=== PATIENT | female | born 1940 | race Caucasian/White ===

== ENCOUNTER → 2018-07-21 10:06 | Outpatient (CLI) | payer MEDICARE, BC, SELFPAY ==
[2018-07-21 10:24] LABS: Basophils # 0.1 K/mm3 (0-0.2); Basophils % 0.8 % (0.1-2.0); Eosinophils # 0.2 K/mm3 (0.0-0.4); Eosinophils % 3.7 % (0.1-12.0); Hematocrit 43.7 % (37.0-47.0); Hemoglobin 15.2 g/dL (12.2-16.2); Lymphocytes # 1.9 K/mm3 (0.7-4.5); Lymphocytes % 29.3 % (10-50); Mean Corpuscular HGB Conc 34.7 g/dL (31.8-35.4); Mean Corpuscular Hemoglobin 28.7 pg (27.0-31.2); Mean Corpuscular Volume 82.7 fl (81-99); Mean Platelet Volume 8.6 fl (7.4-10.4); Monocytes # 0.4 K/mm3 (0.1-1.0); Neutrophils # 3.9 K/mm3 (1.8-7.8); Neutrophils % 60.3 % (37.0-80.0); Platelet Count 234 K/mm3 (142-424); Red Blood Count 5.29 M/mm3 (4.20-5.40); Red Cell Distribution Width 14.8 % (11.5-17.5); White Blood Count 6.5 K/mm3 (4.8-10.8)
[2018-07-21 11:31] LABS: Alanine Aminotransferase 31 U/L (12-78); Albumin Level 3.9 gm/dL (3.4-5.0); Alkaline Phosphatase 96 U/L (46-116); Aspartate Amino Transferase 17 U/L (15-37); Bilirubin,Total 0.4 mg/dL (0.2-1.0); Blood Urea Nitrogen 11 mg/dL (7-18); Calcium 9.1 mg/dL (8.5-10.1); Carbon Dioxide 27 mmol/L (21.0-32.0); Chloride 104 mmol/L (98-107); Chol/HDL Ratio 2.8 (1-3.5); Cholesterol 173 mg/dL (140-200); Creatinine,Serum 0.75 mg/dL (0.55-1.02); Estimated Glomerular Filt Rate 75 ml/min (>60); GFR (African American) 91 ML/MIN (>60); Globulin 3.8 gm/dl (1.3-3.2); Glucose 108 mg/dL (74-106); HDL Cholesterol 62 mg/dL (29-89); LDL Cholesterol 101 mg/dL (0-130); Sodium 140 mmol/L (136-145); Total Protein,Serum 7.7 gm/dL (6.4-8.2); Triglycerides 50 mg/dL (30-200); VLDL Cholesterol 10 mg/dL (0-40)
== END ==
PROVIDERS: Visit Provider Internal Medicine
DX: I10 Essential (primary) hypertension (principal); E78.5 Hyperlipidemia, unspecified; J45.909 Unspecified asthma, uncomplicated; I73.9 Peripheral vascular disease, unspecified; M15.0 Primary generalized (osteo)arthritis
CPT/HCPCS: 36415; 80053; 80061; 85025

== ENCOUNTER 2020-02-05 10:32 | Emergency (ER) | payer MEDICARE, BC, SELFPAY ==
[2020-02-05 10:55] VITALS: BP 151/79; PULSE 89; RESP 18; TEMP 36.9; O2SAT 94; BMI 24.7
--- NOTE | 2020-02-05 10:58 | HMH.EDUTC ---
[facility] [place] Disposition Clinical Impression: Exposure to COVID-19 virus, Viral syndrome Disposition: Home, Self-Care Condition on Discharge: Good Instructions: DI for Viral Syndrome, Preventing the Spread of Coronavirus Discharge Instructions Additional Instructions: Drink plenty of fluids. Take tylenol for pain or fever. Take the medications as directed. Follow up with your regular doctor. GO TO THE ER FOR ANY WORSENING SYMPTOMS Referrals: Clifton Nolasco [Primary Care Provider] - Time of Disposition: 10:59 Medical Decision Making - Medical Records Medical records reviewed: No: I reviewed the patient's medical records. - Daniel Inquiry Pt receiving controlled substance: No Vital Signs: 02/05/20 10:55 02/05/20 11:17 Temperature 98.5 F 98.5 F Temperature Source Oral Oral Pulse Rate 89 Pulse Rate [Radial] 89 Respiratory Rate 18 18 Blood Pressure 151/79 H Blood Pressure [Right Arm] 151/79 H Blood Pressure Mean [Right Arm] 103 Blood Pressure Source Automatic Cuff Blood Pressure Source [Right Arm] Automatic Cuff Blood Pressure Position Sitting Blood Pressure Position [Right Arm] Sitting 02 Sat by Pulse Oximetry 94 L Oxygen Delivery Method Room Air Room Air Orders (Tests/Meds): ORDERS Category Date Time Status Covid-19 Nasal PCR Sendout [facility] 02/05/20 10:49 Received [facility] [place] HPI - General Stated complaint: fever,wants covid test Time Seen by Provider: 02/05/20 10:55 Mode of Arrival: Ambulatory Source of Information: Patient Limitations: No Limitations Description of Symptoms (Recalled from Triage Doc. by RN): states she has been having a fever in the morning. wanting to be tested for covid HEENT Symptoms (Recalled from RN notes): No Resp Symptoms (Recalled from RN notes): No Skin Symptoms (Recalled from RN notes): No MS Symptoms (Recalled from RN notes): No Functional Status (Recalled from RN notes): wnl - History of Present Illness Provider Complaint: She states that for the past 4 days she has had some chilling and low grade fever in the mornings. She denies other symptoms, but she is worried about possibly having covid. - Related Data Allergies Allergy/AdvReac Type Severity Reaction Status Date / Time INGREDIENT: NO KNOWN - NO Allergy Unknown Uncoded 03/12/17 15:10 KNOWN DRUG ALLERGY - Worker's Comp Is this a Worker's Comp case?: No [facility] History - Hepatitis A Screen Drug use history?: No High risk sexual behaviors?: No History of sexually transmitted infection?: No Currently employed?: No Childcare worker?: No Do you have indoor plumbing?: Yes Do you have electricity?: Yes Attestation statement:: This patient has been screened for Hepatitis A risk factors. I have reviewed the patient's past medical history: Yes - Social History Alcohol Intake: never Occupational Status: other ROS Obtained: Yes All systems reviewed & no additional complaints - Constitutional Constitutional: Reports system reviewed and no additional complaints, except as docu - Eyes Eyes: Reports system reviewed and no additional complaints, except as docu - ENT Ears, Nose, Mouth, and Throat: Reports system reviewed and no additional complaints, except as docu - Cardiovascular Cardiovascular: Reports system reviewed and no additional complaints, except as docu - Respiratory Respiratory: Yes system reviewed and no additional complaints, except as docu - Gastrointestinal Gastrointestingal: Reports: system reviewed and no additional complaints, except as docu Physical Exam - General General appearance: alert, in no apparent distress - Head Head exam: atraumatic, normocephalic, normal inspection - Eye Eye exam: Present: normal appearance, PERRL, EOMI - ENT ENT exam: Present: normal exam, normal oropharynx, mucous membranes moist, TM's normal bilaterally, normal external ear exam - Neck Neck exam: Present: normal inspection, full ROM, trachea midline. Ab
[2020-02-05 11:17] VITALS: BP 151/79; PULSE 89; RESP 18; TEMP 36.9; O2SAT 94
[2020-02-06 14:10] LABS: Covid-19 Nasal PCR Sendout Lex Positive
== END 2020-02-05 11:18 | disposition home or self-care (01) ==
PROVIDERS: Emergency Provider Nurse Practitioner Family; PCP Internal Medicine
DX: U07.1 COVID-19 (principal)
CPT/HCPCS: 99201; U0004

== ENCOUNTER → 2020-10-17 10:55 | Outpatient (CLI) | payer MEDICARE, BC, SELFPAY ==
[2020-10-17 11:45] LABS: Basophils # 0.1 K/mm3 (0-0.2); Basophils % 1.1 % (0.1-2.0); Eosinophils # 0.2 K/mm3 (0.0-0.4); Eosinophils % 3.3 % (0.1-12.0); Hematocrit 40.4 % (37.0-47.0); Hemoglobin 12.7 g/dL (12.2-16.2); Lymphocytes # 1.8 K/mm3 (0.7-4.5); Lymphocytes % 29.3 % (10-50); Mean Corpuscular HGB Conc 31.6 g/dL (31.8-35.4); Mean Corpuscular Hemoglobin 25.2 pg (27.0-31.2); Mean Corpuscular Volume 79.8 fl (81-99); Monocytes # 0.4 K/mm3 (0.1-1.0); Monocytes % 7.3 % (1.7-9.3); Neutrophils # 3.6 K/mm3 (1.8-7.8); Neutrophils % 59.1 % (37.0-80.0); Platelet Count 244 K/mm3 (142-424); Red Blood Count 5.06 M/mm3 (4.20-5.40); Red Cell Distribution Width 18.6 % (11.5-17.5); White Blood Count 6.1 K/mm3 (4.8-10.8)
[2020-10-17 13:01] LABS: Iron 108 ug/dL (37-170)
[2020-10-17 13:10] LABS: Total Iron Binding Capacity 350 ug/dL (265-497)
[2020-10-17 13:37] LABS: Ferritin 21.4 ng/ml (11.1-264)
== END ==
PROVIDERS: Visit Provider Nurse Practitioner Family
DX: D50.9 Iron deficiency anemia, unspecified (principal)
CPT/HCPCS: 36415; 82728; 83540; 83550; 85025

== ENCOUNTER → 2020-10-24 10:35 | Outpatient (CLI) | payer MEDICARE, BC, SELFPAY ==
[2020-10-27 11:13] LABS: Occult Blood,Stool Negative (Negative)
== END ==
PROVIDERS: Visit Provider Nurse Practitioner Family
DX: D50.9 Iron deficiency anemia, unspecified (principal)
CPT/HCPCS: 82272; G0328

== ENCOUNTER → 2020-10-25 10:41 | Outpatient (CLI) | payer MEDICARE, BC, SELFPAY ==
[2020-10-27 11:13] LABS: Occult Blood,Stool Positive (Negative)
== END ==
PROVIDERS: Visit Provider Nurse Practitioner Family
DX: D50.9 Iron deficiency anemia, unspecified (principal)
CPT/HCPCS: 82272; G0328

== ENCOUNTER → 2020-10-26 10:44 | Outpatient (CLI) | payer MEDICARE, BC, SELFPAY ==
[2020-10-27 11:13] LABS: Occult Blood,Stool Positive (Negative)
== END ==
PROVIDERS: Visit Provider Nurse Practitioner Family
DX: D50.9 Iron deficiency anemia, unspecified (principal)
CPT/HCPCS: 82272; G0328

== ENCOUNTER → 2021-01-03 09:35 | Outpatient (CLI) | payer MEDICARE, BC, SELFPAY | PROVIDERS: Visit Provider Surgery | DX: Z01.812 Encounter for preprocedural laboratory examination (principal); Z11.52 Encounter for screening for COVID-19; Z13.810 Encounter for screening for upper gastrointestinal disorder; Z12.11 Encounter for screening for malignant neoplasm of colon | CPT/HCPCS: C9803; U0003; U0005 ==

== ENCOUNTER 2021-01-05 09:56 | Day surgery (SDC) | payer MEDICARE, BC, SELFPAY ==
[2021-01-05 10:40] VITALS: BP 203/79; PULSE 70; RESP 20; TEMP 37; O2SAT 97; BMI 23.5
[2021-01-05 11:16] VITALS: O2SAT 97
--- NOTE | 2021-01-05 12:15 | HMH.SCOPE ---
- Procedure: Date: 01/05/21 Patient Date of :: 1940 Procedure Performed:: Esophagogastroduodenoscopy with biopsy Colonoscopy with polypectomy Indications:: Iron deficiency Heme positive stools Performing Provider:: Kentrell Painter MD Referring Provider:: . Sedation:: Monitored anesthesia care Procedure:: After informed consent was obtained the patient was taken to the endoscopy suite. Sedation ensued after the patient was transferred to the left lateral decubitus position. Pulse, blood pressure, and oxygen saturation were monitored throughout the procedure. The endoscope was advanced beyond the duodenal bulb. Retroflexion within the gastric lumen was accomplished. The gastroscope was carefully removed. Digital rectal exam revealed no significant abnormality. The colonoscope was placed in position. The entire colon was evaluated. The colonoscope was carefully removed and the patient was transferred to recovery in stable condition. Please see findings and specimens below for detail. Findings:: Gastroesophageal junction at 34 cm Fairly large sliding hiatal hernia Minimal gastritis Bowel preparation relatively fair Profound colonic tortuosity (worse in sigmoid) Severe spasticity and lack of relaxation Scattered diverticulosis Hemorrhoidal tag/cushions Complex lobulated polyp at 42 cm Specimens:: Prepyloric biopsy Antral biopsy Complex lobulated colon polyp at 45 cm (snare) Recommendations:: Timing of repeat colonoscopy is pending pathology but likely be around 2-3 years secondary to profound tortuosity, significant spasticity/lack of relaxation, and nature of polyp. Barium enema to be considered secondary to profound sigmoid tortuosity and spasticity. Evaluation with regard to iron deficiency/heme positive status will be ongoing. She will likely require UGI/SBFT followed by capsule endoscopy. Complications:: No immediate Estimated blood obtained (mL): 1
[2021-01-05 12:17] VITALS: BP 145/76; PULSE 65; RESP 18; TEMP 36.4; O2SAT 97
[2021-01-05 12:25] VITALS: BP 151/79; PULSE 59; RESP 18; O2SAT 94
[2021-01-05 12:47] VITALS: BP 174/88; PULSE 84; RESP 18; O2SAT 94
--- NOTE | 2021-01-05 12:52 | P.PN_ITS ---
[facility] Anesthesia Checklist - Patient Identification Patient Identification: Arm Band, Verbal (Name & ) - Structural Data Admitted From: Home Planned Operative Procedure/s: EGD/Colonoscopy Consent for Planned Operative Procedure(s) Verified: Yes Verified Documents: Surgical Consent - NPO Status Verified Time NPO: 04:00 - Cardiovascular Assessment Heart Sounds: S1 & S2 - Airway Assessment C-Spine Mobility Assessed: Yes TMJ Mobility Assessed: Yes Dentition: Good Dentition - Neurological Assessment Level of Consciousness: Awake, Alert, Appropriate - Anesthesia Plan Anesthesia Risk discussed: Yes ASA Class: III Anesthesia Type: General [facility] History Medical History: Reports:: Hypertension Denies:: Cancer, Diabetes Mellitus Type 1, Diabetes Mellitus Type 2, Internal Pacemaker, MRSA, Seizures *Have you ever received a pneumonia vaccine?: Yes *Have you received a flu vaccine this season?: No Anesthesia experience/problems:: no issues Laterality Cases: Bilateral: Arthroscopy Hip, Total Hip Replacement Other Surgeries: No: Pacemaker Amputation: No Fractures: No - *Social History Last grade of school completed: 9th or 10th Smoking Status: Never smoker Alcohol Intake: never Substance Use Type: denies use *Occupational Status:: retired Housing: house *Travel in the last 8 weeks: None Family Hx:: Cancer
== END 2021-01-05 12:45 | disposition home or self-care (01) ==
LOC: OUTP 09:59
PROVIDERS: PCP Internal Medicine; Visit Provider Surgery
PROC: 0DJ08ZZ Inspection of Upper Intestinal Tract, Via Natural or Artificial Opening Endoscopic (ICD-10-PCS; CPT 43235; principal; 2021-01-05 11:30)
DX: K29.60 Other gastritis without bleeding (principal); K44.0 Diaphragmatic hernia with obstruction, without gangrene; K63.5 Polyp of colon; K56.2 Volvulus; K62.89 Other specified diseases of anus and rectum; I10 Essential (primary) hypertension; Z80.9 Family history of malignant neoplasm, unspecified
CPT/HCPCS: 43239; 45385; 88305

== ENCOUNTER → 2021-01-20 10:56 | Outpatient (CLI) | payer MEDICARE, BC, SELFPAY ==
--- NOTE | 2021-01-20 10:59 | XR_ITS ---
PROCEDURE: XR LUMBAR SPINE MIN 4V CLINICAL INDICATION: LOW BACK PAIN COMPARISON: No exams were available for comparison FINDINGS: There is straightening of the normal curvature suggesting muscle spasm. There is mild non recent compression of L1 with approximately 20 percent loss of height. There is moderate disc space narrowing at the L3-4 and L4-5 levels. There is no pars defect. There are mild hypertrophic facet changes at the L5-S1 level. The SI joints are normal. IMPRESSION: Findings suggesting muscle spasm along with mild degenerate disc disease L3-4 and L4-5 Dictated by: Dr. Hi Miller MD 01/20/2021 14:55 Dr. Hi Miller MD in [place] 01/20/2021 14:55
== END ==
PROVIDERS: PCP Internal Medicine; Visit Provider Internal Medicine
DX: M54.50 Low back pain, unspecified (principal)
CPT/HCPCS: 72110

== ENCOUNTER → 2021-01-24 08:36 | Outpatient (CLI) | payer MEDICARE, BC, SELFPAY ==
--- NOTE | 2021-01-24 08:36 | FL_ITS ---
PROCEDURE: FL UPPER GI air contrast CLINICAL INDICATION: nausea COMPARISON: No exams were available for comparison TECHNIQUE: FLUOROSCOPY TIME : 1 minutes and 54 seconds FINDINGS: Small to medium-sized hiatal hernia. This does not reduce during the course of the exam. No esophageal gastric or duodenal mass evident. No ulcer apparent. Reflux was not demonstrated during the exam. IMPRESSION: Small medium-sized hiatal hernia otherwise negative upper GI. Dictated by: Ramesh Smith MD 01/30/2021 09:11 Ramesh Smith MD in [facility] 01/30/2021 09:11
== END ==
PROVIDERS: PCP Internal Medicine; Visit Provider Surgery
DX: D64.9 Anemia, unspecified (principal)
CPT/HCPCS: 74246; 74248

== ENCOUNTER → 2021-02-20 14:11 | Outpatient (CLI) | payer MEDICARE, BC, SELFPAY ==
[2021-02-20 15:34] LABS: Alanine Aminotransferase 23 U/L (12-78); Albumin Level 4.2 g/dl (3.5-5.0); Albumin/Globulin Ratio 1.5 (1.1-1.8); Alkaline Phosphatase 78 U/L (38-126); Anion Gap 12.1 mEq/L (5-15); Aspartate Amino Transferase 43 U/L (14-36); Bilirubin,Total 0.7 mg/dl (0.2-1.3); Blood Urea Nitrogen 15 mg/dl (7-17); Calcium 9.4 mg/dl (8.4-10.2); Carbon Dioxide 30 mmol/L (22.0-30.0); Chloride 100 mmol/L (98-107); Chol/HDL Ratio 4.2 (1-3.5); Cholesterol 235 mg/dl (140-200); Estimated Glomerular Filt Rate 81 ml/min (>60); GFR (African American) 98 ML/MIN (>60); Globulin 2.8 g/dL (1.3-3.2); Glucose 88 mg/dl (74-100); HDL Cholesterol 56 mg/dl (40-60); Magnesium 2.1 mg/dl (1.6-2.3); Potassium 5.1 mmoL/L (3.5-5.1); Sodium 137 mmol/L (136-145); Triglycerides 109 mg/dl (30-150); VLDL Cholesterol 22 mg/dL (0-40)
[2021-02-20 15:44] LABS: Direct LDL Cholesterol 158.23 mg/dL (100-129)
== END ==
LOC: LAB 14:12 → LAB.DROPOF 14:15
PROVIDERS: Visit Provider Internal Medicine
DX: I10 Essential (primary) hypertension (principal); E78.5 Hyperlipidemia, unspecified; R79.0 Abnormal level of blood mineral; R73.01 Impaired fasting glucose; D50.9 Iron deficiency anemia, unspecified; D50.0 Iron deficiency anemia secondary to blood loss (chronic)
CPT/HCPCS: 80053; 80061; 83735

== ENCOUNTER → 2021-02-27 14:21 | Outpatient (CLI) | payer MEDICARE, BC, SELFPAY ==
[2021-02-27 15:35] LABS: Basophils # 0.1 K/mm3 (0-0.2); Basophils % 1.6 % (0.1-2.0); Eosinophils # 0.4 K/mm3 (0.0-0.4); Eosinophils % 6.1 % (0.1-12.0); Hematocrit 37.5 % (37.0-47.0); Hemoglobin 12.8 g/dL (12.2-16.2); Lymphocytes # 2.5 K/mm3 (0.7-4.5); Lymphocytes % 35.8 % (10-50); Mean Corpuscular HGB Conc 34.1 g/dL (31.8-35.4); Mean Corpuscular Hemoglobin 29.2 pg (27.0-31.2); Mean Corpuscular Volume 85.7 fl (81-99); Mean Platelet Volume 10.7 fl (7.4-10.4); Monocytes # 0.6 K/mm3 (0.1-1.0); Monocytes % 8.4 % (1.7-9.3); Neutrophils # 3.4 K/mm3 (1.8-7.8); Neutrophils % 48.1 % (37.0-80.0); Platelet Count 265 K/mm3 (142-424); Red Blood Count 4.37 M/mm3 (4.20-5.40); Red Cell Distribution Width 14.9 % (11.5-17.5)
[2021-02-27 16:15] LABS: Hemoglobin A1C 5.7 % (4.0-6.0)
== END ==
PROVIDERS: Visit Provider Internal Medicine
DX: I10 Essential (primary) hypertension (principal); I73.9 Peripheral vascular disease, unspecified; D50.9 Iron deficiency anemia, unspecified; Z79.899 Other long term (current) drug therapy
CPT/HCPCS: 83036; 85025

== ENCOUNTER → 2021-04-04 11:08 | Outpatient (CLI) | payer MEDICARE, BC, SELFPAY ==
--- NOTE | 2021-04-04 11:20 | XR_ITS ---
FINAL REPORT CLINICAL HISTORY: .lower back pain FINDINGS: 5 views of the lumbar spine were obtained. There is mild chronic wedging of L1. There is no acute fracture. There is mild anterolisthesis of L4 on L5. There is facet arthropathy in the lower lumbar spine. There are moderate and severe degenerative changes. There is mild vascular calcification. IMPRESSION: Moderate and severe degenerative change. Reviewed, Interpreted and Dictated by Yovanny Ramon III, MD Transcribed by Percy Smith Authenticated by Yovanny Ramon III, MD on 04/04/2021 12:54:11 PM [facility]
--- NOTE | 2021-04-04 11:20 | XR_ITS ---
FINAL REPORT CLINICAL HISTORY: LT HIP PAIN,LT LEG PAIN FINDINGS: 2 views of the left hip with an AP pelvis were obtained. There is no acute fracture. There has been bilateral hip arthroplasty. There are no soft tissue abnormalities. IMPRESSION: No acute process. Reviewed, Interpreted and Dictated by Yovanny Ramon III, MD Transcribed by Percy Smith Authenticated by Yovanny Ramon III, MD on 04/04/2021 12:54:17 PM [facility]
--- NOTE | 2021-04-04 11:24 | CT_ITS ---
FINAL REPORT CLINICAL HISTORY: AMS FINDINGS: Axial images of the head were obtained without contrast. Coronal reformatted images were also obtained. This study was performed with techniques to keep radiation doses as low as reasonably achievable (ALARA). Individualized dose reduction techniques using automated exposure control or adjustment of mA and/or kV according to the patient's size were employed. There is generalized age-appropriate atrophy. There is moderate ventriculomegaly somewhat greater than expected for the degree of atrophy. Hydrocephalus cannot be excluded. Periventricular low-attenuation areas are seen consistent with mild chronic ischemic changes. There is no evidence of intracranial hemorrhage or mass. There is no evidence of acute infarct. There is no evidence of shift of the midline structures. No skull abnormality is seen on the bone window images. There is mucosal thickening in the bilateral maxillary sinuses and ethmoid air cells. IMPRESSION: Atrophy and mild periventricular chronic ischemic changes. Ventriculomegaly somewhat greater than expected for the degree of atrophy. Hydrocephalus cannot be excluded. No acute intracranial abnormality identified. Reviewed, Interpreted and Dictated by Yovanny Ramon III, MD Transcribed by Percy Smith Authenticated by Yovanny Ramon III, MD on 04/04/2021 12:54:24 PM [facility]
--- NOTE | 2021-04-04 11:25 | CA_ITS ---
FINAL REPORT TECHNIQUE: Color Doppler, duplex Doppler and eagle scale sonography of the bilateral neck arterial vasculature was performed. Velocities were measured in the carotid arteries. Stenosis evaluation based on the validated velocity criteria. CLINICAL HISTORY: DIZZINESS,ALTERED MENTAL STATUS,HTN FINDINGS: The peak systolic velocity of the right common carotid artery is 73 cm/s. The peak systolic velocity of the right internal carotid artery is 86 cm/s and end diastolic velocity 16 cm/s. A mild amount of plaque is present. The right external carotid artery is patent. The right vertebral artery is patent with antegrade flow. The peak systolic velocity of the left common carotid artery is 96 cm/s. The peak systolic velocity of the left internal carotid artery is 119 cm/s and end diastolic velocity 33 cm/s. A mild amount of plaque is present. The left external carotid artery is patent.The left vertebral artery is patent with antegrade flow. IMPRESSION: Less than 50% bilateral carotid stenoses. Bilateral patent vertebral arteries with antegrade flow. If indicated, CTA or MRA could further evaluate. Reviewed, Interpreted and Dictated by Yovanny Ramon III, MD Transcribed by Percy Smith Authenticated by Yovanny Ramon III, MD on 04/04/2021 12:54:56 PM [facility]
== END ==
PROVIDERS: PCP Internal Medicine; Visit Provider Internal Medicine
DX: R42 Dizziness and giddiness (principal); R41.82 Altered mental status, unspecified; M79.605 Pain in left leg; M25.552 Pain in left hip
CPT/HCPCS: 70450; 72110; 73502; 93880

== ENCOUNTER → 2021-06-12 12:50 | Outpatient (CLI) | payer MEDICARE, BC, SELFPAY ==
--- NOTE | 2021-06-12 12:50 | MR_ITS ---
FINAL REPORT CLINICAL HISTORY: Back Pain.LT HIP PAIN, TINGLING AND NUMBESS, NO REFLEXES IN LT LEG. SYMPTOMS X4-5MONTHS. NO INJURY. FINDINGS: Multiplanar MR imaging of the lumbar spine was performed without contrast. On the sagittal T2-weighted images, abnormal decreased signal seen throughout. The vertebral alignment is normal. There is no evidence of fracture. No bony mass is identified. The conus is seen at approximately the L1 level and has an unremarkable appearance. L1-2: Mild diffuse disc bulge with posterolateral disc protrusions and moderate bilateral neuroforaminal narrowing. L2-3: There is no significant canal stenosis or neural foraminal narrowing. L3-4: Moderate focal left paracentral disc protrusion with moderate to high-grade left lateral recess stenosis, best seen on image 21 of series 7. L4-5: Mild diffuse disc bulge with left posterolateral disc protrusion. There is mild right and moderate left neuroforaminal narrowing. L5-S1: Mild left posterolateral disc protrusion with moderate left neuroforaminal narrowing. IMPRESSION: Multilevel disc protrusions most evident eccentric to the left at L3-4 with moderate to high-grade left lateral recess stenosis. Moderate to high-grade L5-S1 neural foraminal narrowing. Reviewed, Interpreted and Dictated by Son Combs MD Transcribed by Lorenza Lazo Authenticated by Son Combs MD on 06/12/2021 03:02:17 PM [facility]
== END ==
PROVIDERS: PCP Internal Medicine; Visit Provider Specialist
DX: G89.29 Other chronic pain (principal); M54.16 Radiculopathy, lumbar region; M54.50 Low back pain, unspecified; M79.605 Pain in left leg; R93.89 Abnormal findings on diagnostic imaging of other specified body structures
CPT/HCPCS: 72148; 76376

== ENCOUNTER → 2021-09-04 11:45 | Outpatient (CLI) | payer MEDICARE, BC, SELFPAY ==
[2021-09-04 15:28] LABS: Alanine Aminotransferase 45 U/L (12-78); Albumin Level 4.1 g/dl (3.5-5.0); Albumin/Globulin Ratio 1.5 (1.1-1.8); Alkaline Phosphatase 90 U/L (38-126); Anion Gap 14.3 mEq/L (5-15); Aspartate Amino Transferase 50 U/L (14-36); Bilirubin,Total 0.5 mg/dl (0.2-1.3); Blood Urea Nitrogen 11 mg/dl (7-17); Calcium 8.9 mg/dl (8.4-10.2); Carbon Dioxide 30 mmol/L (22.0-30.0); Chloride 98 mmol/L (98-107); Chol/HDL Ratio 4.1 (1-3.5); Cholesterol 161 mg/dl (140-200); Estimated Glomerular Filt Rate 69 ml/min (>60); GFR (African American) 84 ML/MIN (>60); Globulin 2.8 g/dL (1.3-3.2); Glucose 100 mg/dl (74-100); HDL Cholesterol 39 mg/dl (40-60); Potassium 3.3 mmoL/L (3.5-5.1); Sodium 139 mmol/L (136-145); Total Protein,Serum 6.9 g/dl (6.3-8.2); Triglycerides 109 mg/dl (30-150); VLDL Cholesterol 22 mg/dL (0-40)
[2021-09-04 15:40] LABS: Direct LDL Cholesterol 95.12 mg/dL (100-129)
== END ==
PROVIDERS: PCP Internal Medicine; Visit Provider Internal Medicine
DX: I10 Essential (primary) hypertension (principal); E78.5 Hyperlipidemia, unspecified; J45.909 Unspecified asthma, uncomplicated; I73.9 Peripheral vascular disease, unspecified; G60.9 Hereditary and idiopathic neuropathy, unspecified; M15.0 Primary generalized (osteo)arthritis
CPT/HCPCS: 80053; 80061

== ENCOUNTER → 2022-03-05 10:17 | Outpatient (CLI) | payer MEDICARE, BC, SELFPAY ==
[2022-03-05 10:48] LABS: Basophils # 0.1 K/mm3 (0-0.2); Basophils % 0.9 % (0.1-2.0); Eosinophils # 0.2 K/mm3 (0.0-0.4); Eosinophils % 2.7 % (0.1-12.0); Hematocrit 34.4 % (37.0-47.0); Lymphocytes # 1.8 K/mm3 (0.7-4.5); Lymphocytes % 29.1 % (10-50); Mean Corpuscular Hemoglobin 25.2 pg (27.0-31.2); Mean Corpuscular Volume 78.6 fl (81-99); Mean Platelet Volume 8.8 fl (7.4-10.4); Monocytes # 0.4 K/mm3 (0.1-1.0); Monocytes % 6.4 % (1.7-9.3); Neutrophils # 3.7 K/mm3 (1.8-7.8); Neutrophils % 60.7 % (37.0-80.0); Platelet Count 349 K/mm3 (142-424); Red Blood Count 4.38 M/mm3 (4.20-5.40); White Blood Count 6.2 K/mm3 (4.8-10.8)
[2022-03-05 12:05] LABS: Alanine Aminotransferase 39 U/L (12-78); Albumin Level 4.4 g/dl (3.5-5.0); Albumin/Globulin Ratio 1.6 (1.1-1.8); Alkaline Phosphatase 121 U/L (38-126); Anion Gap 13.6 mEq/L (5-15); Aspartate Amino Transferase 43 U/L (14-36); Bilirubin,Total 0.5 mg/dl (0.2-1.3); Blood Urea Nitrogen 12 mg/dl (7-17); Calcium 9.5 mg/dl (8.4-10.2); Carbon Dioxide 28 mmol/L (22.0-30.0); Chloride 101 mmol/L (98-107); Chol/HDL Ratio 3.3 (1-3.5); Cholesterol 144 mg/dl (140-200); Estimated Glomerular Filt Rate 69 ml/min (>60); GFR (African American) 84 ML/MIN (>60); Globulin 2.8 g/dL (1.3-3.2); Glucose 108 mg/dl (74-100); HDL Cholesterol 43 mg/dl (40-60); Potassium 3.6 mmoL/L (3.5-5.1); Sodium 139 mmol/L (136-145); Total Protein,Serum 7.2 g/dl (6.3-8.2); Triglycerides 113 mg/dl (30-150); VLDL Cholesterol 23 mg/dL (0-40)
[2022-03-05 12:16] LABS: Direct LDL Cholesterol 75.29 mg/dL (100-129)
== END ==
PROVIDERS: PCP Internal Medicine; Visit Provider Internal Medicine
DX: I10 Essential (primary) hypertension (principal); E78.5 Hyperlipidemia, unspecified; D64.9 Anemia, unspecified; R73.01 Impaired fasting glucose
CPT/HCPCS: 36415; 80053; 80061; 85025

== ENCOUNTER → 2022-09-03 13:32 | Outpatient (CLI) | payer MEDICARE, BC, SELFPAY ==
[2022-09-03 15:20] LABS: Basophils % 0.5 % (0.1-2.0); Eosinophils # 0.2 K/mm3 (0.0-0.4); Eosinophils % 3.2 % (0.1-12.0); Hematocrit 28.5 % (37.0-47.0); Hemoglobin 8.7 g/dL (12.2-16.2); Lymphocytes # 1.5 K/mm3 (0.7-4.5); Lymphocytes % 28.9 % (10-50); Mean Corpuscular HGB Conc 30.4 g/dL (31.8-35.4); Mean Corpuscular Hemoglobin 21.1 pg (27.0-31.2); Mean Corpuscular Volume 69.4 fl (81-99); Mean Platelet Volume 8.8 fl (7.4-10.4); Monocytes # 0.4 K/mm3 (0.1-1.0); Monocytes % 7.3 % (1.7-9.3); Neutrophils # 3.1 K/mm3 (1.8-7.8); Platelet Count 323 K/mm3 (142-424); Red Blood Count 4.11 M/mm3 (4.20-5.40); Red Cell Distribution Width 17.6 % (11.5-17.5); White Blood Count 5.2 K/mm3 (4.8-10.8)
[2022-09-03 15:53] LABS: Alanine Aminotransferase 28 U/L (12-78); Albumin Level 4.2 g/dl (3.5-5.0); Albumin/Globulin Ratio 1.5 (1.1-1.8); Alkaline Phosphatase 99 U/L (38-126); Anion Gap 17.8 mEq/L (5-15); Aspartate Amino Transferase 34 U/L (14-36); Bilirubin,Total 0.5 mg/dl (0.2-1.3); Blood Urea Nitrogen 14 mg/dl (7-17); Calcium 8.7 mg/dl (8.4-10.2); Carbon Dioxide 26 mmol/L (22.0-30.0); Chloride 101 mmol/L (98-107); Chol/HDL Ratio 2.6 (1-3.5); Cholesterol 135 mg/dl (140-200); Estimated Glomerular Filt Rate 69 ml/min (>60); GFR (African American) 84 ML/MIN (>60); Globulin 2.8 g/dL (1.3-3.2); Glucose 93 mg/dl (74-100); HDL Cholesterol 51 mg/dl (40-60); Magnesium 2.2 mg/dl (1.6-2.3); Potassium 4.8 mmoL/L (3.5-5.1); Sodium 140 mmol/L (136-145); Triglycerides 64 mg/dl (30-150); VLDL Cholesterol 13 mg/dL (0-40)
[2022-09-03 16:04] LABS: Direct LDL Cholesterol 70.49 mg/dL (100-129)
[2022-09-04 12:52] LABS: Iron 27 ug/dL (37-170)
[2022-09-04 13:02] LABS: Total Iron Binding Capacity 491 ug/dL (265-497)
== END ==
PROVIDERS: PCP Internal Medicine; Visit Provider Internal Medicine
DX: I10 Essential (primary) hypertension (principal); D64.9 Anemia, unspecified; R73.01 Impaired fasting glucose; E78.5 Hyperlipidemia, unspecified; I73.9 Peripheral vascular disease, unspecified; J45.901 Unspecified asthma with (acute) exacerbation
CPT/HCPCS: 80053; 80061; 83540; 83550; 83735; 85025

== ENCOUNTER → 2022-10-05 11:58 | Outpatient (CLI) | payer MEDICARE, BC, SELFPAY ==
[2022-10-05 12:20] LABS: Basophils % 0.5 % (0.1-2.0); Eosinophils # 0.3 K/mm3 (0.0-0.4); Hematocrit 39.6 % (37.0-47.0); Hemoglobin 12.4 g/dL (12.2-16.2); Lymphocytes # 1.7 K/mm3 (0.7-4.5); Mean Corpuscular HGB Conc 31.5 g/dL (31.8-35.4); Mean Corpuscular Hemoglobin 25.2 pg (27.0-31.2); Mean Corpuscular Volume 80.2 fl (81-99); Mean Platelet Volume 9.2 fl (7.4-10.4); Monocytes # 0.4 K/mm3 (0.1-1.0); Monocytes % 6.9 % (1.7-9.3); Neutrophils # 3.2 K/mm3 (1.8-7.8); Neutrophils % 56.6 % (37.0-80.0); Platelet Count 339 K/mm3 (142-424); Red Blood Count 4.93 M/mm3 (4.20-5.40); Reticulocyte % (Auto) 3.3 % (0.9-3.2); White Blood Count 5.6 K/mm3 (4.8-10.8)
[2022-10-05 12:23] LABS: Red Cell Distribution Width 25.8 % (11.5-17.5)
== END ==
PROVIDERS: PCP Internal Medicine; Visit Provider Internal Medicine
DX: D50.9 Iron deficiency anemia, unspecified; I10 Essential (primary) hypertension
CPT/HCPCS: 85025; 85044

== ENCOUNTER → 2023-03-04 12:42 | Outpatient (CLI) | payer MEDICARE, BC, SELFPAY ==
[2023-03-04 13:31] LABS: Basophils % 0.4 % (0.1-2.0); Eosinophils # 0.2 K/mm3 (0.0-0.4); Eosinophils % 3.9 % (0.1-12.0); Hematocrit 34.1 % (37.0-47.0); Hemoglobin 11.2 g/dL (12.2-16.2); Lymphocytes # 1.3 K/mm3 (0.7-4.5); Lymphocytes % 26.5 % (10-50); Mean Corpuscular Hemoglobin 24.6 pg (27.0-31.2); Mean Corpuscular Volume 74.5 fl (81-99); Mean Platelet Volume 9.3 fl (7.4-10.4); Monocytes # 0.4 K/mm3 (0.1-1.0); Monocytes % 7.9 % (1.7-9.3); Neutrophils # 3.1 K/mm3 (1.8-7.8); Neutrophils % 61.2 % (37.0-80.0); Platelet Count 332 K/mm3 (142-424); Red Blood Count 4.57 M/mm3 (4.20-5.40); Red Cell Distribution Width 17.8 % (11.5-17.5)
[2023-03-04 13:59] LABS: Chloride 104 mmol/L (98-107); Potassium 4.3 mmoL/L (3.5-5.1); Sodium 140 mmol/L (136-145)
[2023-03-04 14:01] LABS: Blood Urea Nitrogen 15 mg/dl (7-17); Estimated Glomerular Filt Rate 69 ml/min (>60); GFR (African American) 83 ML/MIN (>60)
[2023-03-04 14:02] LABS: Alanine Aminotransferase 31 U/L (12-78); Albumin Level 4.4 g/dl (3.5-5.0); Albumin/Globulin Ratio 1.6 (1.1-1.8); Alkaline Phosphatase 92 U/L (38-126); Anion Gap 11.3 mEq/L (5-15); Aspartate Amino Transferase 36 U/L (14-36); Bilirubin,Total 0.5 mg/dl (0.2-1.3); Carbon Dioxide 29 mmol/L (22.0-30.0); Cholesterol 137 mg/dl (140-200); Globulin 2.7 g/dL (1.3-3.2); Total Protein,Serum 7.1 g/dl (6.3-8.2); Triglycerides 59 mg/dl (30-150); VLDL Cholesterol 12 mg/dL (0-40)
[2023-03-04 14:03] LABS: Calcium 8.9 mg/dl (8.4-10.2); Glucose 109 mg/dl (74-100); HDL Cholesterol 45 mg/dl (40-60)
[2023-03-04 14:13] LABS: Direct LDL Cholesterol 79.78 mg/dL (100-129)
== END ==
PROVIDERS: PCP Internal Medicine; Visit Provider Internal Medicine
DX: I10 Essential (primary) hypertension (principal); E78.5 Hyperlipidemia, unspecified; J30.9 Allergic rhinitis, unspecified; I73.9 Peripheral vascular disease, unspecified; G60.9 Hereditary and idiopathic neuropathy, unspecified; D50.9 Iron deficiency anemia, unspecified
CPT/HCPCS: 80053; 80061; 85025

== ENCOUNTER 2023-06-10 12:25 | Outpatient (CLI) | payer MEDICARE, BC, SELFPAY ==
[2023-06-10 15:38] LABS: Anion Gap 15.3 mEq/L (5-15); Blood Urea Nitrogen 13 mg/dl (7-17); Calcium 9.8 mg/dl (8.4-10.2); Carbon Dioxide 25 mmol/L (22.0-30.0); Chloride 103 mmol/L (98-107); Estimated Glomerular Filt Rate 60 ml/min (>60); GFR (African American) 73 ML/MIN (>60); Glucose 114 mg/dl (74-100); Potassium 4.3 mmoL/L (3.5-5.1); Sodium 139 mmol/L (136-145)
== END 2023-06-10 23:59 ==
PROVIDERS: PCP Internal Medicine; Visit Provider Internal Medicine
DX: I10 Essential (primary) hypertension (principal); I73.9 Peripheral vascular disease, unspecified; G60.9 Hereditary and idiopathic neuropathy, unspecified; Z68.27 Body mass index [BMI] 27.0-27.9, adult
CPT/HCPCS: 80048

== ENCOUNTER 2023-10-14 14:18 | Outpatient (CLI) | payer MEDICARE, SELFPAY ==
[2023-10-14 12:44] LABS: Basophils # 0.1 K/mm3 (0-0.2); Basophils % 0.8 % (0.1-2.0); Eosinophils # 0.3 K/mm3 (0.0-0.4); Hematocrit 38.8 % (37.0-47.0); Hemoglobin 12.4 g/dL (12.2-16.2); Lymphocytes # 1.6 K/mm3 (0.7-4.5); Lymphocytes % 22.5 % (10-50); Mean Corpuscular Volume 81.2 fl (81-99); Mean Platelet Volume 10.4 fl (7.4-10.4); Monocytes # 0.4 K/mm3 (0.1-1.0); Monocytes % 5.7 % (1.7-9.3); Neutrophils # 4.7 K/mm3 (1.8-7.8); Platelet Count 271 K/mm3 (142-424); Red Blood Count 4.77 M/mm3 (4.20-5.40); Red Cell Distribution Width 17.7 % (11.5-17.5)
[2023-10-14 13:14] LABS: Alanine Aminotransferase 31 U/L (12-78); Albumin/Globulin Ratio 1.3 (1.1-1.8); Alkaline Phosphatase 82 U/L (38-126); Anion Gap 12.5 mEq/L (5-15); Aspartate Amino Transferase 34 U/L (14-36); Bilirubin,Total 0.6 mg/dl (0.2-1.3); Blood Urea Nitrogen 13 mg/dl (7-17); Calcium 9.3 mg/dl (8.4-10.2); Carbon Dioxide 27 mmol/L (22.0-30.0); Chloride 107 mmol/L (98-107); Chol/HDL Ratio 3.3 (1-3.5); Cholesterol 153 mg/dl (140-200); Estimated Glomerular Filt Rate 53 ml/min (>60); GFR (African American) 64 ML/MIN (>60); Glucose 105 mg/dl (74-100); HDL Cholesterol 46 mg/dl (40-60); Potassium 4.5 mmoL/L (3.5-5.1); Sodium 142 mmol/L (136-145); Triglycerides 80 mg/dl (30-150); VLDL Cholesterol 16 mg/dL (0-40)
[2023-10-14 13:26] LABS: Direct LDL Cholesterol 82.28 mg/dL (100-129)
[2023-10-14 14:09] LABS: Hemoglobin A1C 6.3 % (4.0-6.0)
== END 2023-10-14 23:59 | disposition home or self-care (01) ==
LOC: LAB.DROPOF 14:19
PROVIDERS: PCP Internal Medicine; Visit Provider Internal Medicine
DX: I10 Essential (primary) hypertension (principal); R73.02 Impaired glucose tolerance (oral); E78.5 Hyperlipidemia, unspecified
CPT/HCPCS: 80053; 80061; 83036; 85025

== ENCOUNTER 2024-05-04 10:55 | Outpatient (CLI) | payer MEDICARE, SELFPAY ==
[2024-05-04 12:55] LABS: Basophils # 0.1 K/mm3 (0-0.2); Basophils % 0.6 % (0.1-2.0); Eosinophils # 0.2 K/mm3 (0.0-0.4); Eosinophils % 2.3 % (0.1-12.0); Hematocrit 38.8 % (37.0-47.0); Lymphocytes # 1.4 K/mm3 (0.7-4.5); Lymphocytes % 17.2 % (10-50); Mean Corpuscular HGB Conc 30.9 g/dL (31.8-35.4); Mean Corpuscular Hemoglobin 23.9 pg (27.0-31.2); Mean Corpuscular Volume 77.1 fl (81-99); Mean Platelet Volume 11.3 fl (7.4-10.4); Monocytes # 0.8 K/mm3 (0.1-1.0); Monocytes % 9.2 % (1.7-9.3); Neutrophils # 5.7 K/mm3 (1.8-7.8); Neutrophils % 70.2 % (37.0-80.0); Platelet Count 326 K/mm3 (142-424); Red Blood Count 5.03 M/mm3 (4.20-5.40); White Blood Count 8.2 K/mm3 (4.8-10.8)
[2024-05-04 13:41] LABS: Albumin Level 4.5 g/dl (3.5-5.0); Chloride 101 mmol/L (98-107); Potassium 4.5 mmoL/L (3.5-5.1); Sodium 139 mmol/L (136-145)
[2024-05-04 13:44] LABS: Alanine Aminotransferase 30 U/L (12-78); Albumin/Globulin Ratio 1.7 (1.1-1.8); Alkaline Phosphatase 93 U/L (38-126); Anion Gap 15.5 mEq/L (5-15); Aspartate Amino Transferase 33 U/L (14-36); Bilirubin,Total 0.5 mg/dl (0.2-1.3); Blood Urea Nitrogen 15 mg/dl (7-17); Carbon Dioxide 27 mmol/L (22.0-30.0); Cholesterol 150 mg/dl (140-200); Estimated Glomerular Filt Rate 53 ml/min (>60); GFR (African American) 64 ML/MIN (>60); Globulin 2.7 g/dL (1.3-3.2); Total Protein,Serum 7.2 g/dl (6.3-8.2); Triglycerides 82 mg/dl (30-150); VLDL Cholesterol 16 mg/dL (0-40)
[2024-05-04 13:45] LABS: Calcium 9.4 mg/dl (8.4-10.2); Chol/HDL Ratio 3.8 (1-3.5); Glucose 111 mg/dl (74-100); HDL Cholesterol 39 mg/dl (40-60)
[2024-05-04 13:56] LABS: Direct LDL Cholesterol 82.92 mg/dL (100-129)
[2024-05-04 15:34] LABS: Hemoglobin A1C 6.4 % (4.0-6.0)
== END 2024-05-04 23:59 | disposition home or self-care (01) ==
LOC: LAB.DROPOF 05-05 10:35
PROVIDERS: PCP Internal Medicine; Visit Provider Internal Medicine
DX: I10 Essential (primary) hypertension (principal); E78.5 Hyperlipidemia, unspecified; R73.02 Impaired glucose tolerance (oral); D50.9 Iron deficiency anemia, unspecified
CPT/HCPCS: 80053; 80061; 83036; 85025

== ENCOUNTER 2024-06-11 12:02 | Outpatient (CLI) | payer MEDICARE, SELFPAY ==
--- NOTE | 2024-06-11 12:11 | XR_ITS ---
FINAL REPORT CLINICAL HISTORY: Left shoulder pain post fall 5 weeks ago FINDINGS: Three views show no evidence of acute displaced fracture or dislocation of the visualized bony architecture. The joint spaces appear normal. IMPRESSION: Unremarkable exam. Reviewed, Interpreted and Dictated by Mahesh Torrez MD Transcribed by Ni Ramírez Authenticated and [facility]
== END 2024-06-11 23:59 | disposition home or self-care (01) ==
LOC: RAD 12:04
PROVIDERS: PCP Internal Medicine; Visit Provider Internal Medicine
DX: M25.512 Pain in left shoulder (principal)
CPT/HCPCS: 73030

== ENCOUNTER 2024-11-02 09:30 | Outpatient (CLI) | payer MEDICARE, SELFPAY ==
[2024-11-02 15:40] LABS: Hematocrit 28.2 % (37.0-47.0); Hemoglobin 8.3 g/dL (12.2-16.2); Immature Granulocytes % 0.3 %; Mean Corpuscular HGB Conc 29.4 g/dL (31.8-35.4); Mean Corpuscular Hemoglobin 20.0 pg (27.0-31.2); Mean Corpuscular Volume 67.8 fl (81-99); Nucleated Red Blood Cells % 0 %; Platelet Count 335 K/mm3 (142-424); Red Blood Count 4.16 M/mm3 (4.20-5.40); Red Cell Distribution Width-SD 49.5 fL; White Blood Count 6.2 K/mm3 (4.8-10.8)
[2024-11-02 15:57] LABS: Albumin Level 4.5 g/dl (3.5-5.0); Chloride 101 mmol/L (98-107); Potassium 4.1 mmoL/L (3.5-5.1); Sodium 136 mmol/L (136-145)
[2024-11-02 15:59] LABS: Alanine Aminotransferase 18 U/L (12-78); Blood Urea Nitrogen 16 mg/dl (7-17); Creatinine,Serum 1.10 mg/dl (0.52-1.04); Estimated Glomerular Filt Rate 48 ml/min (>60); GFR (African American) 58 ML/MIN (>60)
[2024-11-02 16:00] LABS: Albumin/Globulin Ratio 1.7 (1.1-1.8); Alkaline Phosphatase 81 U/L (38-126); Anion Gap 16.1 mEq/L (5-15); Aspartate Amino Transferase 29 U/L (14-36); Bilirubin,Total 0.5 mg/dl (0.2-1.3); Calcium 9.2 mg/dl (8.4-10.2); Carbon Dioxide 23 mmol/L (22.0-30.0); Cholesterol 139 mg/dl (140-200); Globulin 2.6 g/dL (1.3-3.2); Glucose 102 mg/dl (74-100); HDL Cholesterol 40 mg/dl (40-60); Total Protein,Serum 7.1 g/dl (6.3-8.2); Triglycerides 101 mg/dl (30-150)
[2024-11-02 16:32] LABS: Hemoglobin A1C 6.1 % (4.0-6.0)
== END 2024-11-02 23:59 | disposition home or self-care (01) ==
LOC: LAB.DROPOF 11-03 14:00
PROVIDERS: PCP Internal Medicine; Visit Provider Internal Medicine
DX: I10 Essential (primary) hypertension (principal); E78.5 Hyperlipidemia, unspecified; R73.02 Impaired glucose tolerance (oral); G60.9 Hereditary and idiopathic neuropathy, unspecified
CPT/HCPCS: 80053; 80061; 83036; 85025

== ENCOUNTER 2024-11-11 12:56 | Outpatient (CLI) | payer MEDICARE, SELFPAY ==
--- NOTE | 2024-11-11 13:00 | CA_ITS ---
APPROVED REPORT EXAM: Comprehensive 2D, Doppler, and color-flow Echocardiogram Materials Clerk: Erinn Doyle, AMY, RVS Ht: 5 ft 5 in Wt: 167lbs BSA: 1.83 BP: 134/62 mmHg Indications: SOB, PINTO, heart murmur 2D Dimensions Left Atrium 3.66 cm F: 2.7 - 3.8 LA Volume 55.90 mL LA Volume Index 30.55 mL/m2 (M/F) 16-34 M-Mode Dimensions RVDd 2.24 cm (0.9-2.6) LA Diam 4.00 cm (1.9-4.0) LVDd 5.16 cm (3.5-5.7) LVDs 3.38 cm (3.5-5.7) IVSd 1.33 cm (0.6-1.1) PWd 1.40 cm (0.6-1.1) EF (Teich) 63.20% EPSs 0.44 cm FS 34.50% EDV (Teich) 127.20 mL TAPSE 2.66 (<1.7) ESV (Teich) 46.80 mL LV Diastology E Decel Time 197 (160-240 msec) E/A Ratio 0.66 MED A' 11.20 cm/s LAT A' 9.20 cm/s Aortic Valve ARIELLA Index 0.77 cm2/m2 AoV Peak Eliud. 284.0 (50-130 cm/s) AI PHT 663.00 ms AO Peak GR. 32.20 mmHg AO Mean GR. 16.00 (<5 mmHg) AO VTI 52.5 (18-25 cm) ARIELLA (VTI) 1.45 (2.5-4.5 cm2) Mitral Valve MV A Velocity 135.0 (40-130 cm/s) E/A Ratio 0.66 Pulmonary Valve PV Peak Velocity 114.0 (50-150 cm/s) Tricuspid Valve TR P. Velocity 255.00 cm/s RAP Estimate 10.00 mmHg RVSP 36.00 mmHg Left Ventricle The left ventricle is normal size. Left ventricular systolic function is normal. The left ventricular ejection fraction is within the normal range. There is increased left ventricular wall thickness. There is normal LV segmental wall motion. Grade 2 diastolic dysfunction is present. LVEF is 60% Right Ventricle The right ventricle is mildly dilated. The right ventricular systolic function is normal. Atria The left atrium is mildly dilated. The right atrium is mildly dilated. There is no color Doppler evidence of interatrial shunt. Aortic Valve The aortic valve is mildly thickened. Mild to moderate aortic stenosis is present. ARIELLA by continuity equation is 1.5 cm2. Peak velocity 2.8 m/s. Mean AV gradient 16 mmHg. Max AV gradient 32mmHg. Moderate aortic regurgitation is present. Mitral Valve The mitral valve is mildly thickened. No evidence of mitral valve stenosis. Mild mitral regurgitation is present. Tricuspid Valve The tricuspid valve leaflets are thin and pliable. Mild tricuspid regurgitation. RVSP is 20-25 mmHg. Pulmonic Valve The pulmonary valve is grossly normal in structure. Trace pulmonic valve regurgitation is present. Great Vessels The aortic root is normal in size. IVC is normal in size and collapses >50% with inspiration. Pericardium There is no pericardial effusion. Other Information Study Quality: Fair Conclusion Normal biventricular systolic function. Grade 2 diastolic dysfunction. Mild RV dilation. Mild biatrial dilation. Mild to moderate (ARIELLA by continuity equation is 1.5 cm2. Peak velocity 2.8 m/s. Mean AV gradient 16 mmHg. Max AV gradient 32mmHg). Moderate AI. Mild MR, mild TR. Electronically signed by : Padmini Zendejas MD 11/13/2024 21:13:16
== END 2024-11-11 23:59 | disposition home or self-care (01) ==
LOC: RT 12:57
PROVIDERS: PCP Internal Medicine; Visit Provider Internal Medicine
DX: I11.9 Hypertensive heart disease without heart failure (principal); I08.3 Combined rheumatic disorders of mitral, aortic and tricuspid valves
CPT/HCPCS: 93306

== ENCOUNTER 2024-12-15 11:10 | Outpatient (CLI) | payer MEDICARE, SELFPAY ==
[2024-12-15 14:23] LABS: Hematocrit 36.2 % (37.0-47.0); Hemoglobin 10.8 g/dL (12.2-16.2); Immature Granulocytes % 0.3 %; Mean Corpuscular HGB Conc 29.8 g/dL (31.8-35.4); Mean Corpuscular Hemoglobin 22.5 pg (27.0-31.2); Mean Corpuscular Volume 75.3 fl (81-99); Nucleated Red Blood Cells % 0 %; Platelet Count 329 K/mm3 (142-424); Red Blood Count 4.81 M/mm3 (4.20-5.40); Red Cell Distribution Width-SD 69.9 fL; Reticulocyte % (Auto) 2.8 % (0.9-3.2); White Blood Count 6.3 K/mm3 (4.8-10.8)
== END 2024-12-15 23:59 ==
LOC: LAB.DROPOF 12-16 10:30
PROVIDERS: PCP Internal Medicine; Visit Provider Internal Medicine
DX: D50.9 Iron deficiency anemia, unspecified (principal)
CPT/HCPCS: 85025; 85044

== ENCOUNTER 2025-01-14 06:59 | Outpatient (CLI) | payer MEDICARE, SELFPAY ==
--- NOTE | 2025-01-14 | CA_ITS ---
APPROVED REPORT Exam: Pharmacologic Technologist: Chloé Mcadams Ht: 5 ft 7 in Wt: 171 lbs BSA: 1.89 m2 HR: 89 bpm BP: 153/67 mmHg Rhythm: Sinus rhythm Indications: Rule out ischemia Stress Test Details HR Resting HR: 89 bpm Max Heart Rate (APMHR): 137.277155 bpm Target HR (85% APMHR): 116.014149 bpm Recovery HR: 84 bpm BP Resting BP: 153.0/67.0 mmHg Recovery BP: 145.0/64.0 mmHg ECG Resting ECG: sinus rhythm Stress ECG Conclusion During lexiscan pt experinced mild dyspnea. No arrhythmias noted. Less than 0.5mm upsloping ST segment changes. Nondiagnostic ECG/Lexiscan. Electronically signed by : Padmini Zendejas MD 01/14/2025 12:50:46
--- NOTE | 2025-01-14 07:30 | NM_ITS ---
APPROVED REPORT Exam: Nuclear Stress Test Indication: cp..soa..fatigue Patient Location: Outpatient Stress Tech: Chloé MARVIN Tech:Radha StarkNADER RT(R)(N) Ht: 5 ft 7 in Wt: 168 lbs Bra Size: 40d HR: 71 bpm BP: 153/67 mmHg BSA: 1.88 m2 TID: 0.71 BMI: 26.3 History: cp..soa..fatigue Procedure: Patient received 0.4 mg of intravenous Lexiscan, resting heart rate 71 bpm, resting blood pressure 153/67 mmHg, with Lexiscan maximum heart rate achieved was 87 bpm which is 85 % of the maximum predicted heart rate and blood pressure was 149/58 mmHg. With Lexiscan, patient denied any complaint of chest pain. Cardiac Stress and Resting SPECT Images: Cardiac Stress and Resting SPECT images were obtained using technetium 99m Myoview 32.9 mCi stress and 10.94 mCi at rest. Technically difficult study. Raw images demonstrate significant soft tissue overlap with the cardiac borders. Resting and stress imaging in supine positions demonstrate a medium sized, moderate, tapered fixed perfusion defect in the inferior LV wall. This is no longer visualized with prone stress imaging. Findings are suggestive of diaphragmatic attenuation. Gated imaging demonstrates normal global LV systolic function. LVEF is calculated at 54%. Conclusion: Technically difficult study. Diaphragmatic attenuation is present. No evidence of fixed or reversible perfusion defects. Gated imaging demonstrates normal global LV systolic function. LVEF is calculated at 54%. Electronically signed by : Padmini Zendejas MD 01/14/2025 12:14:24
[2025-01-14 08:50] VITALS: BP 153/67; PULSE 89; RESP 14
[2025-01-14] MEDS: SODIUM CHLORIDE 0.9% 10ML SYR (RAD ONLY) 10 ML IV ×2 (09:28)
[2025-01-14] MEDS: ISOTOPE MYOVIEW (PER STUDY) 1 DOSE IV (09:28)
--- NOTE | 2025-01-14 11:34 | PC.NURSE ---
10:34 prior to having stress nuclear imaging started, patient reports she experienced a 6/10chest pain while waiting in the lobby but it had resolved. Stress cardiac images obtained, during position change to prone imaging, patient reports 6/10chest pain. Soniya Mckenzie APRN phoned, new order for 12 lead ecg. 10:44 Soniya Mckenzie APRN here to assess patient, chest pain has since resolved, ECG interpretation, no STEMI, she discussed with patient that if chest pain returns she would be possible admission. Patient finished prone images, no further chest pain. BP 158/69 prior to discharge. 11:00 Ok to discharge patient per Soniya Mckenzie APRN. 11:15 Discharge to home with , will call with stress test results later this afternoon.
== END 2025-01-14 23:59 | disposition home or self-care (01) ==
PROVIDERS: PCP Internal Medicine; Visit Provider Physician Assistant
DX: R94.31 Abnormal electrocardiogram [ECG] [EKG] (principal); R06.02 Shortness of breath; R53.83 Other fatigue; R07.9 Chest pain, unspecified
CPT/HCPCS: 78452; 93017; 93018; A9502; J2785

== ENCOUNTER 2025-02-09 07:56 | Outpatient (CLI) | payer MEDICARE, SELFPAY ==
[2025-02-09] MEDS: ALBUTEROL 0.083% 2.5 MG/3 ML NEB IH (08:17)
--- NOTE | 2025-02-09 08:17 | PC.NURSE ---
PFT completed without incident. Albuterol 0.083% given via HHN, per written protocol, Pt tolerated tx well.
== END 2025-02-09 23:59 | disposition home or self-care (01) ==
LOC: RT 07:56
PROVIDERS: PCP Internal Medicine; Visit Provider Physician Assistant
DX: R06.09 Other forms of dyspnea (principal); R94.2 Abnormal results of pulmonary function studies
CPT/HCPCS: 94060; 94726; 94729